=== PATIENT | female | born 1960 | race African-American/Black ===

== ENCOUNTER 2019-03-11 16:19 | Emergency (ER) | payer OTHER ==
[2019-03-11 16:26] VITALS: BP 106/59; PULSE 92; TEMP 98; BMI 36.9
--- NOTE | 2019-03-11 16:26 | PDOC ---
Rapid Medical Evaluation Chief Complaint: Wound Time Seen by Provider: 03/11/19 16:25 Medical Evaluation: Allergies Allergy/AdvReac Type Severity Reaction Status Date / Time Penicillins Allergy Unverified 10/05/13 17:55 03/11/19 16:25 I have performed a brief in-person evaluation of this patient. The patient presents with a chief complaint of: right foot diabetic ulcer Pertinent physical exam findings: deferred I have ordered the following: labs, xray The patient will proceed to the ED for further evaluation. Discharge Disposition - Diagnosis Diabetic foot ulcer - Referrals - Patient Instructions - Post Discharge Activity
== END 2019-03-11 17:00 | disposition home or self-care (01) ==
LOC: JER 16:19
DX: L08.9 Local infection of the skin and subcutaneous tissue, unspecified (principal)
CPT/HCPCS: 73630-TC-RT-FY; 99281-25

== ENCOUNTER 2019-03-11 23:03 | Emergency (ER) | payer OTHER ==
[2019-03-11 23:09] VITALS: TEMP 98.3; BMI 36.9
--- NOTE | 2019-03-11 23:48 | PDOC ---
History of Present Illness - General Chief Complaint: Wound Stated Complaint: WOUND Time Seen by Provider: 03/11/19 23:27 History Source: Patient Exam Limitations: No Limitations Past History - Travel Traveled outside of the country in the last 30 days: No Close contact w/someone who was outside of country & ill: No - Past Medical History Allergies/Adverse Reactions: Allergies Allergy/AdvReac Type Severity Reaction Status Date / Time Penicillins Allergy Verified 03/11/19 23:05 COPD: No Diabetes: Yes HTN: Yes Psychiatric Problems: Yes (schizophrenia bipolar) - Suicide/Smoking/Psychosocial Hx Smoking History: Current every day smoker Have you smoked in the past 12 months: Yes Number of Cigarettes Smoked Daily: 8 Information on smoking cessation initiated: No Hx Alcohol Use: No Drug/Substance Use Hx: No Review of Systems - Review of Systems Able to Perform ROS?: Yes Comments:: 03/12/19 01:58 CONSTITUTIONAL: Absent: fever, chills, diaphoresis, generalized weakness, malaise, loss of appetite HEENT: Absent: rhinorrhea, nasal congestion, throat pain, throat swelling, difficulty swallowing, mouth swelling, ear pain, eye pain, visual Changes CARDIOVASCULAR: Absent: chest pain, loss of consciousness, palpitations, irregular heart rate, peripheral edema RESPIRATORY: Absent: cough, shortness of breath, dyspnea with exertion, orthopnea, wheezing, stridor, hemoptysis GASTROINTESTINAL: Absent: abdominal pain, abdominal distension, nausea, vomiting, diarrhea, constipation, melena, hematochezia GENITOURINARY: Absent: dysuria, frequency, urgency, hesitancy, hematuria, flank pain, genital pain MUSCULOSKELETAL: Absent: myalgia, arthralgia, joint swelling SKIN: Present: R foot ulcer Absent: rash, itching, pallor HEMATOLOGIC/IMMUNOLOGIC: Absent: easy bleeding, easy bruising, lymphadenopathy, frequent infections ENDOCRINE: Absent: unexplained weight gain, unexplained weight loss, heat intolerance, cold intolerance NEUROLOGIC: Absent: headache, focal weakness or paresthesias, dizziness, unsteady gait, seizure, mental status changes, bladder or bowel incontinence PSYCHIATRIC: Absent: anxiety, depression, suicidal or homicidal ideation, hallucinations. Is the patient limited Nauruan proficient: No *Physical Exam - Vital Signs Last Vital Signs Temp Pulse Resp BP Pulse Ox 98.3 F 96 H 18 129/69 100 03/11/19 23:05 03/11/19 23:05 03/11/19 23:05 03/11/19 23:05 03/11/19 23:05 - Physical Exam Comments: 03/12/19 01:58 GENERAL: Well developed, well nourished. Awake and alert. No acute distress. HEENT: Normocephalic, atraumatic. PERRLA, EOMI. No conjunctival pallor. Sclera are non- icteric. Moist mucous membranes. Oropharynx is clear. NECK: Supple. Full ROM. No JVD. Carotid pulses 2+ and symmetric, without bruits. No thyromegaly. No lymphadenopathy. CARDIOVASCULAR: Regular rate and rhythm. No murmurs, rubs, or gallops. Distal pulses are 2+ and symmetric. PULMONARY: No evidence of respiratory distress. Lungs clear to auscultation bilaterally. No wheezing, rales or rhonchi. ABDOMINAL: Soft. Non-tender. Non-distended. No rebound or guarding. No organomegaly. Normoactive bowel sounds. MUSCULOSKELETAL Normal range of motion at all joints. No bony deformities or tenderness. No CVA tenderness. EXTREMITIES: No cyanosis. No clubbing. No edema. No calf tenderness. SKIN: 1cm round 2nd degree pressure ulcer to the R plantar foot. No evidence of secondary infection at this time. Warm and dry. Normal capillary refill. No rashes. No jaundice. NEUROLOGICAL: Alert, awake, appropriate. Cranial nerves 2-12 intact. No deficits to light touch and temperature in face, upper extremities and lower extremities. No motor deficits in the in face, upper extremities and lower extremities. Normoreflexic in the upper and lower extremities. Normal speech. Toes are down- going bilaterally. Gait is normal without ataxia. PSYCHIATRIC: Cooperative. Good eye contact. Appropriate mood and affect. *DC/Admit/Observation/Transfer Diagnosis at time of Disposition: Diabetic foot ulcer Qualifiers: Diabetic foot ulcer location: midfoot Diabetes mellitus type: type 1 Laterality : right Non-pressure ulcer stage: with fat layer exposed Qualified Code(s): E10.621 - Type 1 diabetes mellitus with foot ulcer; L97.412 - Non-pressure chronic ulcer of right heel and midfoot with fat layer exposed - Discharge Dispostion Disposition: HOME Condition at time of disposition: Stable Decision to Admit order: No - Referrals Referrals: Kristen Little [Primary Care Provider] - - Patient Instructions Printed Discharge Instructions: DI for Diabetic Foot Ulcer Additional Instructions: You were evaluated for your foot ulcer today It does not appear to be infected at this time Your x-ray was normal Continue your antibiotics as previously prescribed Keep your follow up with your research rn spec for next week Keep the area clean and dry Return to the ER if the area starts draining, if it red or painful, if you develop fevers, of if you have any changes in your symptoms - Post Discharge Activity
[2019-03-12 04:14] VITALS: BP 126/75; PULSE 99
== END 2019-03-12 04:13 | disposition home or self-care (01) ==
LOC: JER 23:03
DX: E10.621 Type 1 diabetes mellitus with foot ulcer (principal); L97.412 Non-pressure chronic ulcer of right heel and midfoot with fat layer exposed; F17.210 Nicotine dependence, cigarettes, uncomplicated; I10 Essential (primary) hypertension; F25.9 Schizoaffective disorder, unspecified
CPT/HCPCS: 87070; 87186; 87205; 99282-25

== ENCOUNTER 2021-12-31 23:21 | Observation (INO) | payer OTHER ==
[2021-12-31] MEDS ORDERED: ALBUTEROL SO4 2.5/IPRATROPIUM 0.5 INH SOL 3 ML VIAL.NEB. NEB ONE (23:50)
[2021-12-31] MEDS ORDERED: methylPREDNISolone NA SUCC 125 MG/2 ML VIAL IVPB ONE (23:50)
[2022-01-01] MEDS ORDERED: ALBUTEROL SO4 2.5/IPRATROPIUM 0.5 INH SOL 3 ML VIAL.NEB. NEB ONE ×2 (00:08→04:57)
[2022-01-01] MEDS ORDERED: methylPREDNISolone NA SUCC 125 MG/2 ML VIAL ONE (00:09)
[2022-01-01 01:07] LABS: VENOUS BASE EXCESS 0.4 mmol/L (-2-2); VENOUS O2 SATURATION 87.3 % (70-80); VENOUS PCO2 46.5 mmHg (38-52); VENOUS PH 7.368 (7.310-7.410)
[2022-01-01 01:09] LABS: CHLORIDE 105 mmol/L (98-107); SODIUM 138 mmol/L (136-145)
[2022-01-01 01:11] LABS: ALBUMIN 3.2 g/dl (3.4-5.0); ANION GAP 9 MMOL/L (8-16); CALCIUM 8.9 mg/dL (8.5-10.1); CO2 24 mmol/L (21-32)
[2022-01-01 01:12] LABS: BLOOD UREA NITROGEN 15.9 mg/dL (7-18)
[2022-01-01 01:14] LABS: CREATININE 0.9 mg/dL (0.55-1.3); SGOT/AST 17 U/L (15-37)
[2022-01-01 01:15] LABS: SGPT/ALT 14 U/L (13-61)
[2022-01-01 01:16] LABS: BILIRUBIN,TOTAL 0.3 mg/dL (0.2-1); TOT PROT 8.3 g/dl (6.4-8.2)
[2022-01-01 01:18] LABS: ALK PHOS 105 U/L (45-117)
[2022-01-01 01:25] LABS: GLUCOSE,RANDOM 42 mg/dL (74-106)
[2022-01-01] MEDS ORDERED: DEXTROSE 50%-WATER 25 GM/50 ML DISP.SYRIN ONE (01:25)
[2022-01-01 01:32] LABS: BASO % 0.2 % (0-2.0); EOS % 2.3 % (0-4.5); HEMATOCRIT 39.2 % (32.4-45.2); HEMOGLOBIN 12.9 GM/dL (10.7-15.3); LYMPH % 43.7 % (8-40); MCH 29.8 pg (25.7-33.7); MCHC 32.9 g/dl (32.0-36.0); MEAN CELL VOLUME 90.6 fl (80-96); MEAN PLT VOLUME 9.5 fl (7.5-11.1); MONO % 14.7 % (3.8-10.2); NEUT % 39.1 % (42.8-82.8); PLATELET COUNT 213 10^3/uL (134-434); RBC 4.33 M/mm3 (3.60-5.2); WHITE BLOOD COUNT 8.8 K/mm3 (4.0-10.0)
[2022-01-01] MEDS ORDERED: DEXTROSE 50%-WATER - 25 GM/50 ML VIAL IVPUSH ONE (01:36)
[2022-01-01 01:51] LABS: N-TERMINAL BNP 9.2 pg/ml (5-125)
[2022-01-01] MEDS ORDERED: AZITHROMYCIN IVPB 500 MG in DEXTROSE 5%-WATER - 250 ML IVPB ONE (02:19)
[2022-01-01] MEDS ORDERED: CEFTRIAXONE 1,000 MG in DEXTROSE 5%-WATER - 50 ML IVPB ONE (02:19)
[2022-01-01] MEDS ORDERED: CEFTRIAXONE 1 GM/50 ML BAG ONE (02:30)
[2022-01-01] MEDS ORDERED: AZITHROMYCIN IVPB 500 MG/250 ML BAG IVPB ONE (02:31)
[2022-01-01] MEDS ORDERED: ALBUTEROL SO4 2.5/IPRATROPIUM 0.5 INH SOL 3 ML VIAL.NEB. NEB SCH (05:00)
[2022-01-01] MEDS: INSULIN SLIDING SCALE (NOVOLOG) 1 VIAL SQ SCH ×4 (06:37→21:17)
[2022-01-01] MEDS: ALBUTEROL SO4 2.5/IPRATROPIUM 0.5 INH SOL 3 ML VIAL.NEB. NEB SCH ×4 (09:22→19:51)
[2022-01-01] MEDS: NICOTINE 7 MG/24 HOURS TOPICAL PATCH TD SCH (09:49)
[2022-01-01] MEDS: ENOXAPARIN NA (PORCINE) 40 MG/0.4 ML DISP.SYRIN SQ SCH ×2 (09:50→21:18)
[2022-01-01] MEDS: methylPREDNISolone NA SUCC 40 MG/1 ML VIAL IVPUSH SCH ×3 (10:50→21:17)
[2022-01-01] MEDS: FLUoxetine HCL 20 MG CAPSULE PO SCH (10:50)
[2022-01-01] MEDS ORDERED: PNEUMOC 20-VAL CONJ-DIP CRM/PF 0.5 ML SYRINGE IM ONE (12:17)
[2022-01-01 12:44] VITALS: BMI 41.5
[2022-01-01] MEDS ORDERED: INSULIN (NOVOLOG) ASPART 100 UNITS/ML 10ML VIAL ONE (21:11)
[2022-01-01] MEDS ORDERED: risperiDONE 2 MG TABLET PO SCH (22:00)
[2022-01-02] MEDS: methylPREDNISolone NA SUCC 40 MG/1 ML VIAL IVPUSH SCH ×2 (02:41→09:26)
[2022-01-02] MEDS: INSULIN SLIDING SCALE (NOVOLOG) 1 VIAL SQ SCH ×3 (06:19→11:40)
[2022-01-02] MEDS: ALBUTEROL SO4 2.5/IPRATROPIUM 0.5 INH SOL 3 ML VIAL.NEB. NEB SCH ×2 (07:54→11:47)
[2022-01-02] MEDS: ENOXAPARIN NA (PORCINE) 40 MG/0.4 ML DISP.SYRIN SQ SCH (09:26)
[2022-01-02] MEDS: FLUoxetine HCL 20 MG CAPSULE PO SCH (09:26)
[2022-01-02] MEDS: NICOTINE 7 MG/24 HOURS TOPICAL PATCH TD SCH (09:37)
[2022-01-02 12:02] VITALS: BP 150/86; PULSE 99; TEMP 98.1
[2022-01-03] MEDS ORDERED: predniSONE 20 MG TABLET (UD) PO SCH (10:00)
== END 2022-01-02 13:57 | disposition home or self-care (01) ==
LOC: JER 23:21 → JERBED 01-01 02:07 → UNDOADMOB 01-01 02:07 → INTOOBSV 01-01 02:07 → JERBED 01-01 03:14 → J6S 01-01 06:25
PROVIDERS: ADMIT Hospitalist; ATTEND Nurse Practitioner Acute Care
PROC: 3E0F7GC Introduction of Other Therapeutic Substance into Respiratory Tract, Via Natural or Artificial Opening (ICD-10-PCS; principal; 2022-01-01)
PROC: 3E03329 Introduction of Other Anti-infective into Peripheral Vein, Percutaneous Approach (ICD-10-PCS; 2022-01-01)
PROC: 3E0337Z Introduction of Electrolytic and Water Balance Substance into Peripheral Vein, Percutaneous Approach (ICD-10-PCS; 2022-01-01)
PROC: 3E023GC Introduction of Other Therapeutic Substance into Muscle, Percutaneous Approach (ICD-10-PCS; 2022-01-01)
PROC: 3E013VG Introduction of Insulin into Subcutaneous Tissue, Percutaneous Approach (ICD-10-PCS; 2022-01-01)
DX: J84.9 Interstitial pulmonary disease, unspecified (principal); F20.0 Paranoid schizophrenia; I10 Essential (primary) hypertension; E11.9 Type 2 diabetes mellitus without complications; Z89.429 Acquired absence of other toe(s), unspecified side; Z29.8 Encounter for other specified prophylactic measures; E66.01 Morbid (severe) obesity due to excess calories; Z68.41 Body mass index [BMI] 40.0-44.9, adult; Z88.0 Allergy status to penicillin; F17.210 Nicotine dependence, cigarettes, uncomplicated
CPT/HCPCS: 0241U-QW; 36415; 71045-TC-FY; 71250-TC; 80053; 82803; 82962; 83880; 84484; 85025; 90677; 93005; 93010; 94640; 96365; 96368; 96372; 96375; 99291; 99292; G0378

== ENCOUNTER 2022-01-22 22:42 | Emergency (ER) | payer OTHER ==
[2022-01-22 22:51] VITALS: BP 125/73; PULSE 85; TEMP 98.1; BMI 31.0
== END 2022-01-23 03:05 | disposition home or self-care (01) ==
LOC: JER 22:42
DX: R06.02 Shortness of breath (principal)
CPT/HCPCS: 99281-25